=== PATIENT | female | born 1970 | race Caucasian/White ===

== ENCOUNTER 2020-10-14 08:37 | Outpatient (CLI) | payer OTHER, SELFPAY ==
--- NOTE | ~2020-10-14 | MR_ITS ---
EXAMINATION: MR shoulder LT wo con DATE: 10/14/2020 09:13 INDICATION: Left shoulder pain. TECHNIQUE: Magnetic resonance imaging (MRI) of the left shoulder was performed without intravenous co ntrast. Sequences included axial PD-weighted FS FSE, coronal oblique PD-weighted FS FSE and T2-weight ed FS FSE, and sagittal oblique T2-weighted FS FSE and T1-weighted FSE. COMPARISON: None. FINDINGS: Coracoacromial arch: The acromion undersurface is curved in morphology with anterior hook (type III). There is mild acromi oclavicular joint osteoarthritis. Subacromial spurring is noted. There is mild subacromial/subdeltoid bursitis. Rotator cuff: There is severe supraspinatus tendinopathy and moderate infraspinatus tendinopathy. Teres minor tendo n is normal. There is mild subscapularis tendinopathy. No tear. There is no asymmetric fatty atrophy of the rotator cuff muscle bellies. There is mild edema in supraspinatus muscle belly at the myotendi nous junction, consistent with mild strain. Biceps tendon and glenoid labrum: Biceps tendon is in bicipital groove. Intra-articular biceps tendon is normal. The glenoid labrum is normal. Fluid: There is no glenohumeral joint effusion. Bones/cartilage: Glenoid cartilage is normal. Humeral head cartilage is normal. IMPRESSION: 1. Severe rotator cuff tendinopathy. No tear. Mild strain of supraspinatus muscle belly (grade 1). 2. Mild acromioclavicular joint osteoarthritis. 3. Mild subacromial/subdeltoid bursitis. Reviewed, dictated and finalized at location A. IMPRESSION: 1. Severe rotator cuff tendinopathy. No tear. Mild strain of supraspinatus musc le belly (grade 1). 2. Mild acromioclavicular joint osteoarthritis. 3. Mild subacromial/subdeltoid bursitis.
== END 2020-10-14 08:38 ==
DX: M75.102 Unspecified rotator cuff tear or rupture of left shoulder, not specified as traumatic (principal); M19.012 Primary osteoarthritis, left shoulder; M75.52 Bursitis of left shoulder
CPT/HCPCS: 73221

== ENCOUNTER 2021-12-26 14:23 | Emergency (ER) | payer OTHER, SELFPAY ==
--- NOTE | ~2021-12-26 | XR_ITS ---
XR foot RT min 3V 12/26/2021 15:20 INDICATION: Right foot pain PROCEDURE: 4 views right foot COMPARISON: No prior studies for comparison. FINDINGS: Fracture, dislocation or subluxation is not identified. Lisfranc joint intact. The soft tis sues appear within normal limits. No foreign bodies are identified. IMPRESSION: 1: NO ACUTE BONE OR JOINT ABNORMALITY IDENTIFIED. Reviewed, dictated and finalized at location A.
[2021-12-26 14:24] VITALS: BP 128/80; PULSE 120; RESP 16; TEMP 37; O2SAT 98
--- NOTE | 2021-12-26 16:12 | ED.LOWEXIN ---
HPI - Extremity Injury (Lower) General Chief Complaint: Extremity Injury, Lower <Dee Bocanegra PA-C - Last Filed: 12/26/21 16:43> Stated Complaint: right foot pain <ARIN Sosa Last Filed: 12/26/21 16:43> Time Seen by Provider: 12/26/21 15:01 <ARIN Sosa Last Filed: 12/26/21 16:43> Source: patient <ARIN Sosa Last Filed: 12/26/21 16:43> Mode of arrival: ambulatory <ARIN Sosa Last Filed: 12/26/21 16:43> Limitations: no limitations <ARIN Sosa Filed: 12/26/21 16:43> History of Present Illness HPI Narrative: Patient is a 51-year-old female who presents the ED with report of right foot pain. Patient reports she was playing with her dog and he ran at her full speed causing her to stumble. She states she felt like her right toes bent underneath her right foot at that time. She complains of pain and swelling to her medial and lateral edges of her right foot. She has not been able to ambulate well due to the pain. No numbness, tingling. No ankle pain. No other injuries. No falls, HI. <Dee Bocanegra PA-C - Last Filed: 12/26/21 16:43> Related Data Allergies/Adverse Reactions: Allergies Allergy/AdvReac Type Severity Reaction Status Date / Time codeine Allergy Mild RASH Verified 12/26/21 14:27 morphine Allergy Unknown HIVES Verified 12/26/21 14:27 <ARIN Sosa Last Filed: 12/26/21 16:43> Review of Systems Review of Systems: CONSTITUTIONAL: Denies fever. SKIN: Reports swelling to R foot. MUSCULOSKELETAL: Reports R foot pain. Denies R ankle pain. NEUROLOGIC: Denies HI, numbness, tingling, or weakness. <ARIN Sosa Last Filed: 12/26/21 16:43> All systems reviewed & are unremarkable except as noted in HPI and below <Dee Bocanegra PA-C - Last Filed: 12/26/21 16:43> PMFSH Past Medical History Medical History: Medical History Anemia Pneumothorax on left <Dee Bocanegra PA-C - Last Filed: 12/26/21 16:43> Surgical History Surgical History: Surgical History H/O tubal ligation History of partial hysterectomy <Dee Bocanegra PA-C - Last Filed: 12/26/21 16:43> Social History Social History: Social History Smoking packs per day: 1 Smoking cigarettes per day: 20.0 Smoking status: Current every day smoker Tobacco type: cigarettes Gender identity (if verbalized by the patient): Female <Dee Bocanegra PA-C - Last Filed: 12/26/21 16:43> Exam Narrative: GENERAL: Well appearing, well-nourished, non-toxic, in no acute distress. HEAD: Normocephalic, atraumatic. NECK: Supple. No adenopathy, no masses. RESPIRATORY: Airway patent, respirations nonlabored. CARDIOVASCULAR: Regular rate and rhythm without murmurs, rubs, or gallops. Pedal pulses 2+ and equal bilaterally. MUSCULOSKELETAL: Moves all extremities. Strength/ROM intact without gross deformities. Diffuse swelling over dorsal distal R foot. No significant bruising. TTP over distal 1st metatarsal and diffusely along 5th metatarsal. Sensation intact. No tenderness to palpation over medial or lateral malleoli, calcaneus. SKIN: Warm, dry, normal color. No rashes. NEURO: A&O X3. Speech clear. Cranial nerves II-XII grossly intact. No ataxic movements. PSYCHIATRIC: Appropriate mood and affect. Normal interaction. 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 [] <Kojo Parekh DO - [place] Filed: 12/26/21 18:39> Vital Signs Vital signs: Vital Signs Temperature 98.6 F 12/26/21 14:24 Pulse Rate 120 H 12/26/21 14:24 Respiratory Rate 16 12/26/21 14:24 B
[2021-12-26] MEDS: KETOROLAC (*BKC) 60 MG/2 ML VIAL IM (16:16)
[2021-12-26 16:36] VITALS: BP 118/70; PULSE 86; RESP 16; TEMP 36.4; O2SAT 100
--- NOTE | 2021-12-31 21:24 | PC.NURSE ---
CORRECTION TO CHARTING 12/31/21 AT 1624 IN WOUND SECTION RIGHT FOOT SHOULD BE NOTED NOT LEFT
== END 2021-12-26 16:39 | disposition home or self-care (01) ==
PROVIDERS: Emergency Provider Emergency Medicine
DX: S93.601A Unspecified sprain of right foot, initial encounter (principal); Z86.2 Personal history of diseases of the blood and blood-forming organs and certain disorders involving the immune mechanism; Z90.711 Acquired absence of uterus with remaining cervical stump; F17.210 Nicotine dependence, cigarettes, uncomplicated; W54.1XXA Struck by dog, initial encounter
CPT/HCPCS: 73630; 96372; 99283; J1885

== ENCOUNTER 2022-05-27 10:54 | Emergency (ER) | payer OTHER, SELFPAY ==
--- NOTE | ~2022-05-27 | CT_ITS ---
EXAMINATION: CT abdomen pelvis w con DATE: 05/27/2022 15:43 INDICATION: Abdominal pain and bloating. TECHNIQUE: Computed tomography (CT) of the abdomen and pelvis was performed with 100 cc Omnipaque 350 intravenous contrast. The dose-length product was 247.28 mGy-cm. Automated exposure control and iter ative reconstruction technique were employed. COMPARISON: CT dated 04/25/2019 FINDINGS: Lung bases are unremarkable. Heart size normal. The liver, spleen, pancreas, adrenal glands and kidneys are unremarkable. Gallbladder is present. No evidence for hernia. Small amount of free f luid in the pelvis. Colonic diverticulosis without evidence for diverticulitis. There is mild thicken ing of the sigmoid colon. Cannot exclude colitis. No free air. No significant vascular abnormality. N o lymphadenopathy. Bladder is unremarkable. No focal lytic or blastic lesions. IMPRESSION: 1. Mild thickening of the sigmoid colon, suspicious for colitis, most likely infectious or inflammato ry. 2: Small amount of free fluid in the pelvis. Reviewed, dictated and finalized at location A. CTOR OF PATIENT SAFETY IMPRESSION: 1. Mild thickening of the sigmoid colon, suspicious for colitis, most likely in fectious or inflammatory. 2: Small amount of free fluid in the pelvis.
[2022-05-27 11:37] VITALS: BP 119/85; PULSE 107; RESP 14; TEMP 36.3; O2SAT 98
[2022-05-27 11:59] LABS: Basophils Absolute Auto 0.1 K/mm3 (0.0-0.1); Basophils Percent Auto 0.5 % (0.2-1.2); Eosinophils Percent Auto 0.3 % (0-4.4); Hematocrit 42.6 % (37.0-47.0); Hemoglobin 13.9 g/dL (12.0-15.0); Immature Granulocyte Absolute 0.03 K/mm3 (0.00-0.031); Immature Granulocyte Percent A 0.3 % (0-0.5); Lymphocytes Absolute Auto 2.61 K/mm3 (0.9-3.2); Lymphocytes Percent Auto 23.1 % (18.3-44.2); Mean Corpuscular HGB Conc 32.6 g/dl (32-36); Mean Corpuscular Hemoglobin 30.3 pg (26-34); Mean Corpuscular Volume 92.8 fl (80-100); Mean Platelet Volume 8.7 fl (7.4-10.4); Monocytes Absolute Auto 0.9 K/mm3 (0.1-0.6); Monocytes Percent Auto 7.5 % (2.6-8.5); Neutrophils Absolute Auto 7.7 K/mm3 (1.3-6.7); Neutrophils Percent Auto 68.3 % (45.5-73.1); Platelet Count Result 293 k/mm3 (150-375); Red Blood Count 4.59 M/mm3 (4.2-5.4); Red Cell Distribution Width 12.7 % (11.5-14.5); White Blood Count 11.3 K/mm3 (4.5-10.0)
[2022-05-27 12:11] LABS: Alanine Aminotransferase 14 U/L (6-35); Albumin Level 4.8 g/dL (3.5-5.1); Alkaline Phosphatase 112 U/L (38-126); Anion Gap 6 mmol/L (8-16); Aspartate Amino Transferase 27 U/L (14-36); Bilirubin,Total 0.4 mg/dL (0.2-1.3); Blood Urea Nitrogen 9 mg/dL (7-17); Calcium 9.5 mg/dL (8.4-10.2); Carbon Dioxide 29 mmol/L (22-30); Chloride 102 mmol/L (98-107); Estimated CRCL calculation 52 ml/min; Estimated Glomerular Filt Rate > 60; Glucose 97 mg/dL (65-110); Lipase 70 U/L (23-300); Sodium 137 mmol/L (137-145)
--- NOTE | 2022-05-27 15:06 | ED.ABDPAIN ---
HPI - Abdominal Pain General Chief Complaint: Abdominal Pain Stated Complaint: abdominal pain Time Seen by Provider: 05/27/22 14:40 History of Present Illness HPI narrative: Patient is a 52-year-old female presenting with abdominal pain. Patient states that for the last 2 days she has had suprapubic and periumbilical abdominal pain. States that at first she thought she was just constipated so she took some MiraLAX. States that she has not had a bowel movement for the last 2 days but she continues to feel like she needs to. Reports feeling bloated and nauseated earlier but denies any vomiting. Reports decreased oral intake for the last couple of days. No fevers or chills, headache, chest pain, shortness of breath, diarrhea, dysuria, flank pain. Related Data Allergies Allergy/AdvReac Type Severity Reaction Status Date / Time codeine Allergy Mild RASH Verified 05/27/22 10:55 morphine Allergy Unknown HIVES Verified 05/27/22 10:55 Review of Systems Review of Systems: All systems reviewed & are unremarkable except as noted in HPI and below PMFSH Past Medical History Medical History Anemia Pneumothorax on left Surgical History Surgical History H/O tubal ligation History of partial hysterectomy Social History Social History Smoking packs per day: 1 Smoking cigarettes per day: 20.0 Smoking status: Current every day smoker Tobacco type: cigarettes Gender identity (if verbalized by the patient): Female Exam Narrative: GENERAL: Well-appearing, well-nourished, and in no acute distress. HEAD: Normocephalic, atraumatic. EYES: PERRLA and EOMI. ENT: Nares clear, no rhinorrhea or epistaxis. Mucous membranes moist. NECK: Supple. CHEST: Clear to auscultation. No respiratory distress. HEART: Regular rate and rhythm. No murmur heard. Normal peripheral pulses. ABDOMEN: Soft, tender in periumbilical and Suprapubic Region, No Guarding or Rebound, nondistended, normal active bowel sounds. EXTREMITIES: Normal range of motion. No edema. SKIN: Warm, dry, no rash. NEURO: No focal deficits. Alert and oriented x3. PSYCH: Normal mood and affect. Course Vital Signs Vital signs: Vital Signs Temperature 97.3 F L 05/27/22 11:37 Pulse Rate 107 H 05/27/22 11:37 Respiratory Rate 14 05/27/22 11:37 Blood Pressure 119/85 05/27/22 11:37 Pulse Oximetry 98 05/27/22 11:37 Oxygen Delivery Room Air 05/27/22 11:37 Temperature 97.3 F L 05/27/22 11:37 Pulse Rate 87 05/27/22 16:04 Respiratory Rate 17 05/27/22 16:04 Blood Pressure 115/76 05/27/22 16:04 Pulse Oximetry 100 05/27/22 16:04 Oxygen Delivery Room Air 05/27/22 11:37 MDM - Abdominal Pain MDM Narrative Medical decision making narrative: Patient is a 52-year-old female presenting with abdominal pain. Vitals within normal limits. Patient is nontoxic and in no acute distress. Exam remarkable for the above. Blood work with mild leukocytosis. CT abdomen pelvis is suspicious for colitis. Discussed the appropriate supportive care. Patient actually has not had any diarrhea, she has been struggling with some constipation. Advised that she increase her MiraLAX for the next couple of days. Advised PCP follow-up. Appropriate return precautions given. Patient voiced understanding and is agreeable with plan. Discharged in stable condition. Lab Data 05/27/22 11:46 05/27/22 11:46 Labs: Lab Results 05/27/22 05/27/22 05/27/22 Range/Units 11:46 11:46 16:01 WBC 11.3 H (4.5-10.0) K/mm3 RBC 4.59 (4.2-5.4) M/mm3 Hgb 13.9 (12.0-15.0) g/dL Hct 42.6 (37.0-47.0) % MCV 92.8 (80-100) fl MCH 30.3 (26-34) pg MCHC 32.6 (32-36) g/dl RDW 12.7 (11.5-14.5) % Plt Count 293 (150-375) k/mm3 MPV 8.7 (7.4-10.4) fl I
[2022-05-27] MEDS: KETOROLAC 15 MG/ML VIAL (*BKC) IV PUSH (15:20)
[2022-05-27] MEDS: SODIUM CHLORIDE 0.9% IV 1,000 ML 999 ML IV CONT (15:21)
[2022-05-27 16:04] VITALS: BP 115/76; PULSE 87; RESP 17; O2SAT 100
[2022-05-27 16:07] LABS: Appearance Urine Clear (Clear); Bilirubin Urine Negative (Negative); Blood Urine 2+ (Negative); Color Urine Yellow (Yellow); Glucose Urine UA Negative (Negative); Ketones Urine 1+ mg/dL (Negative); Leukocyte Esterase Ur Negative LEU/UL (Negative); Nitrate Urine Negative (Negative); Protein Urine Negative (Negative); Specific Grav Ur <= 1.005 (1.001-1.035); Urobilinogen Urine 0.2 mg/dL (<2.0); pH Urine 5.5 (5.0-9.0)
[2022-05-27 16:10] LABS: Bacteria Urine Trace /hpf; Mucus Urine Rare /lpf; RBC Urine 21-50 /hpf (0-2); Squamous Epithelial Cell Urine Occasional /hpf (Few); WBC Urine 0-3 /hpf
[2022-05-27 16:13] LABS: Add Urine Microscopic? YES
== END 2022-05-27 17:30 | disposition home or self-care (01) ==
PROVIDERS: General Practice; Emergency Provider Emergency Medicine
DX: K52.9 Noninfective gastroenteritis and colitis, unspecified (principal); Z86.2 Personal history of diseases of the blood and blood-forming organs and certain disorders involving the immune mechanism; Z90.711 Acquired absence of uterus with remaining cervical stump
CPT/HCPCS: 36415; 74177; 80053; 81001; 83690; 85025; 96361; 96374; 99284; J1885; J7030; Q9967